=== PATIENT | male | born 1940 | race Two or more races ===

== ENCOUNTER 2023-11-14 19:01 | Inpatient (IN) | payer OTHER ==
[~2023-11-14] VITALS: Ht 198.1 cm; Wt 57.2 kg
[2023-11-14] MEDS ORDERED: MODA100T29 PO (19:33)
[2023-11-14] MEDS ORDERED: ASPI81TA31 PO (19:33)
[2023-11-14] MEDS ORDERED: TAMS-3 PO (19:33)
[2023-11-14] MEDS ORDERED: DOCU100T2 PO (19:33)
[2023-11-14] MEDS ORDERED: TRAZ-257 PO (19:33)
[2023-11-14] MEDS ORDERED: PANT40TA49 PO (19:33)
[2023-11-14] MEDS ORDERED: TRAM50TA2 PO (19:33)
[2023-11-14] MEDS ORDERED: ACET-3117 PO (19:33)
[2023-11-14] MEDS ORDERED: lispro SUBCUT (19:33)
[2023-11-14] MEDS ORDERED: EMPA25TA PO (20:14)
[2023-11-14 21:23] LABS: AMMONIA < 10 umol/L (11-32)
[2023-11-14 21:25] LABS: BASOPHILS % (AUTO) 0.3 % (0.0-2.0); DIFFERENTIAL COMMENT 0; HEMATOCRIT 33.2 % (36.7-47.1); HEMOGLOBIN 10.6 g/dL (12.5-16.3); LYMPHOCYTES # (AUTO) 0.8 K/uL (0.8-4.8); LYMPHOCYTES % (AUTO) 6.5 % (20.5-51.5); MEAN CORPUSCULAR HEMOGLOBIN 26.3 uug (23.8-33.4); MEAN CORPUSCULAR HGB CONC 32 g/dL (32.5-36.3); MEAN CORPUSCULAR VOLUME 82.6 fL (73.0-96.2); MONOCYTES # (AUTO) 0.6 K/uL (0.1-1.30); MONOCYTES % (AUTO) 4.5 % (0.0-11.0); NEUTROPHILS % (AUTO) 88.7 % (38.5-71.5); PLATELET COUNT (AUTO) 279 K/uL (152-348); RED BLOOD CELL COUNT(AUTO) 4.02 MIL/uL (4.06-5.63); RED CELL DISTRIBUTION WIDTH 16.9 % (12.1-16.2); WHITE BLOOD COUNT (AUTO) 12.4 K/uL (3.6-10.2)
[2023-11-14 21:43] LABS: CARBON DIOXIDE 28 mmol/L (21-32); CHLORIDE 109 mmol/L (98-107); CREATININE 0.8 mg/dL (0.6-1.3); GLUCOSE 99 mg/dL (74-106); POTASSIUM 3.4 mmol/L (3.5-5.1); SODIUM SERUM 147 mmol/L (136-145); UREA NITROGEN, BLOOD 17 mg/dL (7-18)
[2023-11-14 21:56] LABS: ALANINE AMINOTRANSFERASE 17 U/L (16-63); ALKALINE PHOSPHATASE 82 U/L (50-136); ASPARTATE AMINOTRANSFERASE 17 U/L (15-37); BILIRUBIN,TOTAL 0.2 mg/dL (0.2-1.0); NT-PRO BNP 8143 pg/mL (0-125); TOTAL PROTEIN, SERUM 7.1 g/dL (6.4-8.2)
[2023-11-15] VITALS (27 sets, daily range): BP systolic 72–148; BP diastolic 44–85; TEMP 97.7–98.7; O2SAT 96–100
[2023-11-15 00:15] LABS: *BILIRUBIN,URIN NEGATIVE (NEGATIVE); *BLOOD, URINE NEGATIVE (NEGATIVE); *CLARITY,URINE CLEAR (CLEAR); *COLOR,URINE YELLOW (YELLOW); *KETONES,URINE 1+ (NEGATIVE); *PROTEIN,URINE 1+ (NEGATIVE); *UROBILINOGEN,URINE 0.2 E.U./dl (NORMAL); LEUKOCYTE ESTERASE ,URINE NEGATIVE (NEGATIVE); NITRITE, URINE NEGATIVE (NEGATIVE); PH,URINE 5.5 (5.0-8.0)
[2023-11-15 00:17] LABS: UGLUCOSE 3+ (NEGATIVE)
[2023-11-15 01:09] LABS: BACTERIA,URINE FEW /HPF (NONE SEEN); RBC,URINE 0-3 /HPF (0-3); SQUAMOUS EPITHELIAL CELL,UR FEW /HPF (NONE SEEN); WBC,URINE NONE SEEN /HPF (0-3)
[2023-11-15] MEDS ORDERED: ONDANSETRON 4 MG/2 ML VIAL IV PRN (02:45)
[2023-11-15] MEDS ORDERED: REMEDY ESSENTIAL ZINC PASTE 113 GM TP PRN (02:45)
[2023-11-15] MEDS ORDERED: MAGNESIUM HYDROXIDE 30 ML LIQUID UDC PO PRN (02:45)
[2023-11-15] MEDS ORDERED: CEFEPIME HCL 1 G in IV DEXTROSE 5% 50 ML IV ONE (04:00)
[2023-11-15] MEDS ORDERED: AMIODARONE HCL 150 MG/3 ML VIAL IV ONE ×2 (04:18)
[2023-11-15] MEDS ORDERED: IV NS 1000 ML 1,000 ML IV ONE (04:30)
[2023-11-15] MEDS ORDERED: AMIODARONE HCL IV 150 MG in IV DEXTROSE 5% 100 ML IV ONE (05:00)
[2023-11-15] MEDS: AMIODARONE HCL IV 450 MG in IV DEXTROSE 5% 250 ML IV PRN (06:12)
[2023-11-15 07:43] LABS: BASOPHILS % (AUTO) 0.2 % (0.0-2.0); HEMATOCRIT 30.4 % (36.7-47.1); HEMOGLOBIN 9.8 g/dL (12.5-16.3); LYMPHOCYTES # (AUTO) 1.3 K/uL (0.8-4.8); LYMPHOCYTES % (AUTO) 14.3 % (20.5-51.5); MEAN CORPUSCULAR HEMOGLOBIN 26.7 uug (23.8-33.4); MEAN CORPUSCULAR HGB CONC 32 g/dL (32.5-36.3); MEAN CORPUSCULAR VOLUME 82.6 fL (73.0-96.2); MONOCYTES # (AUTO) 0.6 K/uL (0.1-1.30); MONOCYTES % (AUTO) 6.6 % (0.0-11.0); NEUTROPHILS # (AUTO) 7.4 K/uL (1.8-8.9); NEUTROPHILS % (AUTO) 78.9 % (38.5-71.5); PLATELET COUNT (AUTO) 244 K/uL (152-348); RED BLOOD CELL COUNT(AUTO) 3.68 MIL/uL (4.06-5.63); RED CELL DISTRIBUTION WIDTH 17.2 % (12.1-16.2); WHITE BLOOD COUNT (AUTO) 9.4 K/uL (3.6-10.2)
[2023-11-15] MEDS: BLOOD SUGAR DIAGNOSTIC 1 EACH STRIP VI SCH ×4 (07:49→21:11)
[2023-11-15 08:19] LABS: DIFFERENTIAL COMMENT 1
[2023-11-15 08:20] LABS: THYROID STIMULATING HORMONE 0.721 mIU/mL (0.358-3.740)
[2023-11-15 08:37] LABS: CALCIUM 8.4 mg/dL (8.5-10.1); CREATININE 0.7 mg/dL (0.6-1.3)
[2023-11-15 09:18] LABS: MAGNESIUM 1.9 mg/dL (1.8-2.4); PHOSPHOROUS 4.2 mg/dL (2.5-4.9)
[2023-11-15] MEDS: INSULIN REGULAR, HUMAN 300 UNIT/3 ML VIAL SQ PRN ×3 (09:24→17:37)
[2023-11-15] MEDS: ENOXAPARIN SODIUM 40 MG/0.4 ML DISP.SYRIN SQ SCH (09:24)
[2023-11-15] MEDS: ASPIRIN 81 MG TAB.CHEW PO SCH (09:25)
[2023-11-15] MEDS: MODAFINIL 100 MG TABLET PO SCH (09:25)
[2023-11-15] MEDS: EMPAGLIFLOZIN 25 MG TABLET PO SCH (09:25)
[2023-11-15] MEDS: PANTOPRAZOLE SODIUM 40 MG VIAL IV SCH (09:25)
[2023-11-15] MEDS: DOCUSATE SODIUM 100 MG CAPSULE PO SCH ×2 (09:25→17:00)
[2023-11-15] MEDS: CEFEPIME HCL 1 G in IV DEXTROSE 5% 50 ML IV SCH ×2 (09:26→17:38)
[2023-11-15] MEDS ORDERED: POTASSIUM CHLORIDE 20 MEQ in IV NS 1000 ML 1,000 ML IV PRN (09:30)
[2023-11-15] MEDS ORDERED: POTASSIUM CHLORIDE 20 MEQ TAB.PRT.SR PO ONE (09:45)
[2023-11-15 09:53] LABS: IRON, SERUM 8 ug/dL (50-175)
[2023-11-15] MEDS ORDERED: POTASSIUM CHLORIDE 20 MEQ POWDER PACKET PO ONE (11:30)
[2023-11-15] MEDS: PHENYLEPHRINE IV 50 MG in IV NORMAL SALINE 245 ML IV PRN (17:35)
[2023-11-15] MEDS: POTASSIUM CHLORIDE 20 MEQ in IV D5/ 0.9% NACL 1,000 ML IV PRN (18:35)
[2023-11-15] MEDS ORDERED: TAMSULOSIN HCL 0.4 MG CAP.SR.24H PO SCH (21:00)
[2023-11-16] VITALS (65 sets, daily range): BP systolic 61–159; BP diastolic 35–106; TEMP 97–98; O2SAT 89–100
[2023-11-16] MEDS: CEFEPIME HCL 1 G in IV DEXTROSE 5% 50 ML IV SCH ×3 (00:26→18:39)
[2023-11-16 06:04] LABS: BASOPHILS % (AUTO) 0.4 % (0.0-2.0); DIFFERENTIAL COMMENT 0; EOSINOPHILS % (AUTO) 0.1 % (0.0-7.0); HEMATOCRIT 33.9 % (36.7-47.1); HEMOGLOBIN 10.7 g/dL (12.5-16.3); LYMPHOCYTES # (AUTO) 1.5 K/uL (0.8-4.8); LYMPHOCYTES % (AUTO) 13.5 % (20.5-51.5); MEAN CORPUSCULAR HEMOGLOBIN 25.9 uug (23.8-33.4); MEAN CORPUSCULAR HGB CONC 32 g/dL (32.5-36.3); MEAN CORPUSCULAR VOLUME 81.9 fL (73.0-96.2); MONOCYTES # (AUTO) 0.8 K/uL (0.1-1.30); NEUTROPHILS # (AUTO) 8.9 K/uL (1.8-8.9); PLATELET COUNT (AUTO) 299 K/uL (152-348); RED BLOOD CELL COUNT(AUTO) 4.13 MIL/uL (4.06-5.63); RED CELL DISTRIBUTION WIDTH 16.8 % (12.1-16.2); WHITE BLOOD COUNT (AUTO) 11.2 K/uL (3.6-10.2)
[2023-11-16 06:16] LABS: THYROID STIMULATING HORMONE 0.752 mIU/mL (0.358-3.740)
[2023-11-16 06:58] LABS: CALCIUM 8.5 mg/dL (8.5-10.1); CARBON DIOXIDE 18 mmol/L (21-32); CHLORIDE 105 mmol/L (98-107); CHOLESTEROL 164 mg/dL (<200); CREATININE 0.7 mg/dL (0.6-1.3); GLUCOSE 128 mg/dL (74-106); HDL CHOLESTEROL 58 mg/dL (40-60); PHOSPHOROUS 3.4 mg/dL (2.5-4.9); POTASSIUM 3.5 mmol/L (3.5-5.1); SODIUM SERUM 140 mmol/L (136-145); TRIGLYCERIDES 64 MG/DL (30-150); UREA NITROGEN, BLOOD 16 mg/dL (7-18)
[2023-11-16] MEDS: BLOOD SUGAR DIAGNOSTIC 1 EACH STRIP VI SCH ×4 (07:30→21:18)
[2023-11-16] MEDS: ASPIRIN 81 MG TAB.CHEW PO SCH (08:53)
[2023-11-16] MEDS: DOCUSATE SODIUM 100 MG CAPSULE PO SCH ×2 (08:53→17:00)
[2023-11-16] MEDS: MODAFINIL 100 MG TABLET PO SCH (08:53)
[2023-11-16] MEDS: PANTOPRAZOLE SODIUM 40 MG VIAL IV SCH (08:53)
[2023-11-16] MEDS: ENOXAPARIN SODIUM 40 MG/0.4 ML DISP.SYRIN SQ SCH (08:55)
[2023-11-16] MEDS: ACETAMINOPHEN 325 MG TABLET PO PRN (08:56)
[2023-11-16] MEDS: PHENYLEPHRINE IV 50 MG in IV NORMAL SALINE 245 ML IV PRN (09:34)
[2023-11-16] MEDS: EMPAGLIFLOZIN 25 MG TABLET PO SCH (10:03)
[2023-11-16] MEDS: INSULIN REGULAR, HUMAN 300 UNIT/3 ML VIAL SQ PRN ×2 (10:25→13:00)
[2023-11-16] MEDS ORDERED: INSU100V7 SQ (10:29)
[2023-11-16] MEDS: POTASSIUM CHLORIDE 20 MEQ in IV D5/ 0.9% NACL 1,000 ML IV PRN (13:51)
[2023-11-16] MEDS ORDERED: LORAZEPAM 2 MG/1 ML VIAL IV PRN (14:15)
[2023-11-16] MEDS: TAMSULOSIN HCL 0.4 MG CAP.SR.24H PO SCH (21:22)
[2023-11-16] MEDS: INSULIN GLARGINE,HUM 300 UNITS/3 ML CARTRIDGE SQ SCH (21:23)
[2023-11-17] VITALS (62 sets, daily range): BP systolic 75–148; BP diastolic 43–105; TEMP 97.4–97.8; O2SAT 94–100
[2023-11-17] MEDS: CEFEPIME HCL 1 G in IV DEXTROSE 5% 50 ML IV SCH ×3 (01:50→18:27)
[2023-11-17] MEDS: PHENYLEPHRINE IV 50 MG in IV NORMAL SALINE 245 ML IV PRN (02:02)
[2023-11-17 05:31] LABS: BASOPHILS # (AUTO) 0.1 K/UL (0.0-0.2); BASOPHILS % (AUTO) 0.6 % (0.0-2.0); EOSINOPHILS % (AUTO) 0.5 % (0.0-7.0); HEMATOCRIT 39.8 % (36.7-47.1); HEMOGLOBIN 12.6 g/dL (12.5-16.3); LYMPHOCYTES # (AUTO) 1.6 K/uL (0.8-4.8); LYMPHOCYTES % (AUTO) 17.3 % (20.5-51.5); MEAN CORPUSCULAR HGB CONC 32 g/dL (32.5-36.3); MONOCYTES # (AUTO) 0.6 K/uL (0.1-1.30); MONOCYTES % (AUTO) 6.4 % (0.0-11.0); NEUTROPHILS % (AUTO) 75.2 % (38.5-71.5); PLATELET COUNT (AUTO) 301 K/uL (152-348); RED BLOOD CELL COUNT(AUTO) 4.86 MIL/uL (4.06-5.63); RED CELL DISTRIBUTION WIDTH 16.9 % (12.1-16.2); WHITE BLOOD COUNT (AUTO) 9.3 K/uL (3.6-10.2)
[2023-11-17 05:35] LABS: DIFFERENTIAL COMMENT 1
[2023-11-17 05:54] LABS: ALANINE AMINOTRANSFERASE 31 U/L (16-63); ALBUMIN 2.8 g/dL (3.4-5.0); ALKALINE PHOSPHATASE 124 U/L (50-136); ASPARTATE AMINOTRANSFERASE 21 U/L (15-37); BILIRUBIN,TOTAL 0.4 mg/dL (0.2-1.0); CALCIUM 8.8 mg/dL (8.5-10.1); CARBON DIOXIDE 25 mmol/L (21-32); CHLORIDE 106 mmol/L (98-107); CREATININE 0.7 mg/dL (0.6-1.3); GLUCOSE 110 mg/dL (74-106); MAGNESIUM 1.9 mg/dL (1.8-2.4); PHOSPHOROUS 3.2 mg/dL (2.5-4.9); POTASSIUM 3.3 mmol/L (3.5-5.1); SODIUM SERUM 142 mmol/L (136-145); TOTAL PROTEIN, SERUM 7.2 g/dL (6.4-8.2); UREA NITROGEN, BLOOD 13 mg/dL (7-18)
[2023-11-17] MEDS: BLOOD SUGAR DIAGNOSTIC 1 EACH STRIP VI SCH ×4 (07:42→21:00)
[2023-11-17] MEDS: ENOXAPARIN SODIUM 40 MG/0.4 ML DISP.SYRIN SQ SCH (08:53)
[2023-11-17] MEDS: PANTOPRAZOLE SODIUM 40 MG TABLET.DR PO SCH (14:03)
[2023-11-17] MEDS: ASPIRIN 81 MG TAB.CHEW PO SCH (14:05)
[2023-11-17] MEDS: DOCUSATE SODIUM 100 MG CAPSULE PO SCH ×2 (14:06→18:27)
[2023-11-17] MEDS: EMPAGLIFLOZIN 25 MG TABLET PO SCH (14:07)
[2023-11-17] MEDS: DOXYCYCLINE HYCLATE 100 MG TABLET PO SCH ×2 (14:07→20:42)
[2023-11-17] MEDS ORDERED: POTASSIUM CHLORIDE 20 MEQ TAB.PRT.SR PO ONE (14:45)
[2023-11-17] MEDS: AMIODARONE HCL IV 450 MG in IV DEXTROSE 5% 250 ML IV PRN ×2 (17:20→17:28)
[2023-11-17] MEDS: TAMSULOSIN HCL 0.4 MG CAP.SR.24H PO SCH (20:42)
[2023-11-17] MEDS: INSULIN GLARGINE,HUM 300 UNITS/3 ML CARTRIDGE SQ SCH (21:06)
[2023-11-17] MEDS ORDERED: ENOXAPARIN SODIUM 60 MG/0.6 ML DISP.SYRIN SQ ONE (21:15)
[2023-11-18] VITALS (42 sets, daily range): BP systolic 104–153; BP diastolic 44–117; TEMP 97.1–97.7; O2SAT 93–99
[2023-11-18] MEDS: ACETAMINOPHEN 325 MG TABLET PO PRN ×3 (00:36→16:46)
[2023-11-18] MEDS: CEFEPIME HCL 1 G in IV DEXTROSE 5% 50 ML IV SCH ×3 (00:36→16:59)
[2023-11-18] MEDS: AMIODARONE HCL IV 450 MG in IV DEXTROSE 5% 250 ML IV PRN (04:03)
[2023-11-18] MEDS: PANTOPRAZOLE SODIUM 40 MG TABLET.DR PO SCH (06:46)
[2023-11-18] MEDS: BLOOD SUGAR DIAGNOSTIC 1 EACH STRIP VI SCH ×4 (06:46→20:51)
[2023-11-18] MEDS: ASPIRIN 81 MG TAB.CHEW PO SCH (08:45)
[2023-11-18] MEDS: DOCUSATE SODIUM 100 MG CAPSULE PO SCH ×2 (08:45→17:00)
[2023-11-18] MEDS: DOXYCYCLINE HYCLATE 100 MG TABLET PO SCH ×2 (08:46→20:37)
[2023-11-18] MEDS: EMPAGLIFLOZIN 25 MG TABLET PO SCH (08:46)
[2023-11-18] MEDS: OLANZAPINE 10 MG VIAL IM PRN ×2 (12:41→22:12)
[2023-11-18] MEDS: ENOXAPARIN SODIUM 60 MG/0.6 ML DISP.SYRIN SQ SCH ×2 (15:02→20:38)
[2023-11-18] MEDS: PHENYLEPHRINE IV 50 MG in IV NORMAL SALINE 245 ML IV PRN (16:50)
[2023-11-18] MEDS: HALOPERIDOL LACTATE 5 MG/1 ML VIAL IM PRN (20:02)
[2023-11-18] MEDS: INSULIN GLARGINE,HUM 300 UNITS/3 ML CARTRIDGE SQ SCH (20:06)
[2023-11-18] MEDS: TAMSULOSIN HCL 0.4 MG CAP.SR.24H PO SCH (20:37)
[2023-11-19] VITALS (23 sets, daily range): BP systolic 104–167; BP diastolic 52–134; TEMP 97.3–98.7; O2SAT 96–100
[2023-11-19] MEDS: CEFEPIME HCL 1 G in IV DEXTROSE 5% 50 ML IV SCH ×3 (00:18→18:18)
[2023-11-19] MEDS: PANTOPRAZOLE SODIUM 40 MG TABLET.DR PO SCH (05:51)
[2023-11-19] MEDS: BLOOD SUGAR DIAGNOSTIC 1 EACH STRIP VI SCH ×4 (08:49→21:14)
[2023-11-19] MEDS: ASPIRIN 81 MG TAB.CHEW PO SCH (09:04)
[2023-11-19] MEDS: DOCUSATE SODIUM 100 MG CAPSULE PO SCH ×2 (09:05→18:26)
[2023-11-19] MEDS: EMPAGLIFLOZIN 25 MG TABLET PO SCH (09:05)
[2023-11-19] MEDS: DOXYCYCLINE HYCLATE 100 MG TABLET PO SCH ×2 (09:07→21:04)
[2023-11-19] MEDS: LOSARTAN POTASSIUM 25 MG TABLET PO SCH (09:31)
[2023-11-19] MEDS: HALOPERIDOL LACTATE 5 MG/1 ML VIAL IM PRN ×2 (09:31→21:04)
[2023-11-19] MEDS: ENOXAPARIN SODIUM 60 MG/0.6 ML DISP.SYRIN SQ SCH ×2 (10:41→21:06)
[2023-11-19] MEDS: OLANZAPINE 10 MG VIAL IM PRN (10:45)
[2023-11-19] MEDS: ACETAMINOPHEN 325 MG TABLET PO PRN (12:25)
[2023-11-19] MEDS: INSULIN REGULAR, HUMAN 300 UNIT/3 ML VIAL SQ PRN (18:20)
[2023-11-19] MEDS ORDERED: AMIODARONE HCL IV 150 MG in IV DEXTROSE 5% 100 ML IV ONE (18:45)
[2023-11-19] MEDS: AMIODARONE HCL IV 450 MG in IV DEXTROSE 5% 250 ML IV PRN (19:38)
[2023-11-19] MEDS: INSULIN GLARGINE,HUM 300 UNITS/3 ML CARTRIDGE SQ SCH (21:00)
[2023-11-19] MEDS: TAMSULOSIN HCL 0.4 MG CAP.SR.24H PO SCH (21:05)
[2023-11-20] VITALS (26 sets, daily range): BP systolic 97–140; BP diastolic 47–92; TEMP 97.6–98.4; O2SAT 95–100
[2023-11-20] MEDS: CEFEPIME HCL 1 G in IV DEXTROSE 5% 50 ML IV SCH ×3 (00:49→17:00)
[2023-11-20] MEDS: AMIODARONE HCL IV 450 MG in IV DEXTROSE 5% 250 ML IV PRN (01:42)
[2023-11-20] MEDS: PANTOPRAZOLE SODIUM 40 MG TABLET.DR PO SCH (07:42)
[2023-11-20] MEDS: BLOOD SUGAR DIAGNOSTIC 1 EACH STRIP VI SCH ×4 (07:44→21:00)
[2023-11-20] MEDS: INSULIN REGULAR, HUMAN 300 UNIT/3 ML VIAL SQ PRN ×2 (07:50→17:02)
[2023-11-20] MEDS: ASPIRIN 81 MG TAB.CHEW PO SCH (09:03)
[2023-11-20] MEDS: DOCUSATE SODIUM 100 MG CAPSULE PO SCH ×2 (09:03→17:00)
[2023-11-20] MEDS: LOSARTAN POTASSIUM 25 MG TABLET PO SCH (09:04)
[2023-11-20] MEDS: DOXYCYCLINE HYCLATE 100 MG TABLET PO SCH ×2 (09:04→20:58)
[2023-11-20] MEDS: EMPAGLIFLOZIN 25 MG TABLET PO SCH (09:04)
[2023-11-20] MEDS: ENOXAPARIN SODIUM 60 MG/0.6 ML DISP.SYRIN SQ SCH ×2 (09:05→21:05)
[2023-11-20] MEDS ORDERED: OLANZAPINE ZYDIS 5 MG TAB.RAPDIS PO SCH (09:30)
[2023-11-20] MEDS: OLANZAPINE 10 MG VIAL IM PRN (09:49)
[2023-11-20] MEDS: METOPROLOL TARTRATE 25 MG TABLET PO SCH ×2 (12:22→20:56)
[2023-11-20] MEDS ORDERED: NOREPINEPHRINE BITARTRATE 32 MG in IV NORMAL SALINE 218 ML IV PRN (12:30)
[2023-11-20] MEDS: LORAZEPAM 0.5 MG TABLET PO PRN (12:34)
[2023-11-20] MEDS: AMIODARONE HCL 200 MG TABLET PO SCH ×2 (15:15→20:56)
[2023-11-20] MEDS: OLANZAPINE ZYDIS 5 MG TAB.RAPDIS PO SCH (17:00)
[2023-11-20] MEDS: MIRTAZAPINE 15 MG TABLET PO SCH (20:56)
[2023-11-20] MEDS: TAMSULOSIN HCL 0.4 MG CAP.SR.24H PO SCH (20:56)
[2023-11-20] MEDS: INSULIN GLARGINE,HUM 300 UNITS/3 ML CARTRIDGE SQ SCH (21:00)
[2023-11-20] MEDS ORDERED: MIRTAZAPINE 15 MG TABLET PO SCH (21:00)
[2023-11-20] MEDS ORDERED: GUAIFENESIN LA 600 MG TABLET.SA PO ONE (23:43)
[2023-11-21] VITALS (21 sets, daily range): BP systolic 92–147; BP diastolic 45–93; TEMP 96.9–98; O2SAT 96–99
[2023-11-21] MEDS: CEFEPIME HCL 1 G in IV DEXTROSE 5% 50 ML IV SCH ×3 (01:06→16:51)
[2023-11-21] MEDS: LORAZEPAM 0.5 MG TABLET PO PRN ×2 (05:24→15:22)
[2023-11-21] MEDS: PANTOPRAZOLE SODIUM 40 MG TABLET.DR PO SCH (06:02)
[2023-11-21] MEDS: BLOOD SUGAR DIAGNOSTIC 1 EACH STRIP VI SCH ×4 (07:57→21:39)
[2023-11-21] MEDS: AMIODARONE HCL 200 MG TABLET PO SCH ×2 (08:57→21:01)
[2023-11-21] MEDS: ASPIRIN 81 MG TAB.CHEW PO SCH (08:58)
[2023-11-21] MEDS: DOCUSATE SODIUM 100 MG CAPSULE PO SCH ×2 (08:58→16:50)
[2023-11-21] MEDS: METOPROLOL TARTRATE 25 MG TABLET PO SCH ×2 (08:59→20:59)
[2023-11-21] MEDS: ENOXAPARIN SODIUM 60 MG/0.6 ML DISP.SYRIN SQ SCH ×2 (09:00→21:34)
[2023-11-21] MEDS: LOSARTAN POTASSIUM 25 MG TABLET PO SCH (09:01)
[2023-11-21] MEDS: EMPAGLIFLOZIN 25 MG TABLET PO SCH (09:01)
[2023-11-21] MEDS: OLANZAPINE ZYDIS 5 MG TAB.RAPDIS PO SCH ×2 (09:02→16:50)
[2023-11-21] MEDS: DOXYCYCLINE HYCLATE 100 MG TABLET PO SCH ×2 (09:02→21:04)
[2023-11-21] MEDS: INSULIN REGULAR, HUMAN 300 UNIT/3 ML VIAL SQ PRN (11:42)
[2023-11-21 12:11] LABS: ALANINE AMINOTRANSFERASE 20 U/L (16-63); ALBUMIN 2.3 g/dL (3.4-5.0); ALKALINE PHOSPHATASE 91 U/L (50-136); ASPARTATE AMINOTRANSFERASE 29 U/L (15-37); BILIRUBIN,TOTAL 0.3 mg/dL (0.2-1.0); CALCIUM 8.5 mg/dL (8.5-10.1); CARBON DIOXIDE 26 mmol/L (21-32); CHLORIDE 107 mmol/L (98-107); CREATININE 0.7 mg/dL (0.6-1.3); GLUCOSE 125 mg/dL (74-106); MAGNESIUM 1.9 mg/dL (1.8-2.4); PHOSPHOROUS 2.7 mg/dL (2.5-4.9); POTASSIUM 3.3 mmol/L (3.5-5.1); SODIUM SERUM 141 mmol/L (136-145); UREA NITROGEN, BLOOD 12 mg/dL (7-18)
[2023-11-21 12:30] LABS: BASOPHILS # (AUTO) 0.2 K/UL (0.0-0.2); BASOPHILS % (AUTO) 1.6 % (0.0-2.0); DIFFERENTIAL COMMENT 0; EOSINOPHILS # (AUTO) 0.1 K/uL (0.0-0.7); EOSINOPHILS % (AUTO) 0.6 % (0.0-7.0); HEMATOCRIT 33.8 % (36.7-47.1); HEMOGLOBIN 10.7 g/dL (12.5-16.3); LYMPHOCYTES % (AUTO) 9.8 % (20.5-51.5); MEAN CORPUSCULAR HEMOGLOBIN 25.8 uug (23.8-33.4); MEAN CORPUSCULAR HGB CONC 32 g/dL (32.5-36.3); MEAN CORPUSCULAR VOLUME 81.7 fL (73.0-96.2); MONOCYTES # (AUTO) 0.5 K/uL (0.1-1.30); NEUTROPHILS # (AUTO) 8.5 K/uL (1.8-8.9); PLATELET COUNT (AUTO) 338 K/uL (152-348); RED BLOOD CELL COUNT(AUTO) 4.14 MIL/uL (4.06-5.63); RED CELL DISTRIBUTION WIDTH 17.4 % (12.1-16.2); WHITE BLOOD COUNT (AUTO) 10.2 K/uL (3.6-10.2)
[2023-11-21] MEDS: POTASSIUM CHLORIDE 50 ML IV SCH ×4 (15:13→18:26)
[2023-11-21] MEDS: OLANZAPINE 10 MG VIAL IM PRN (19:22)
[2023-11-21] MEDS: TAMSULOSIN HCL 0.4 MG CAP.SR.24H PO SCH (20:57)
[2023-11-21] MEDS: MIRTAZAPINE 15 MG TABLET PO SCH (20:58)
[2023-11-21] MEDS: GUAIFENESIN LA 600 MG TABLET.SA PO SCH (20:58)
[2023-11-21] MEDS: INSULIN GLARGINE,HUM 300 UNITS/3 ML CARTRIDGE SQ SCH (21:00)
[2023-11-22] VITALS (8 sets, daily range): BP systolic 108–125; BP diastolic 54–96; TEMP 97.2–98.3; O2SAT 96–99
[2023-11-22] MEDS: LORAZEPAM 0.5 MG TABLET PO PRN (00:23)
[2023-11-22] MEDS: QUETIAPINE FUMARATE 25 MG TABLET PO SCH ×2 (00:23→20:54)
[2023-11-22 06:05] LABS: BASOPHILS % (AUTO) 0.3 % (0.0-2.0); EOSINOPHILS % (AUTO) 0.2 % (0.0-7.0); HEMATOCRIT 35.4 % (36.7-47.1); HEMOGLOBIN 11.3 g/dL (12.5-16.3); LYMPHOCYTES # (AUTO) 0.9 K/uL (0.8-4.8); LYMPHOCYTES % (AUTO) 8.1 % (20.5-51.5); MEAN CORPUSCULAR HEMOGLOBIN 25.9 uug (23.8-33.4); MEAN CORPUSCULAR HGB CONC 32 g/dL (32.5-36.3); MEAN CORPUSCULAR VOLUME 80.9 fL (73.0-96.2); MONOCYTES # (AUTO) 0.6 K/uL (0.1-1.30); MONOCYTES % (AUTO) 5.6 % (0.0-11.0); NEUTROPHILS # (AUTO) 9.3 K/uL (1.8-8.9); NEUTROPHILS % (AUTO) 85.8 % (38.5-71.5); PLATELET COUNT (AUTO) 416 K/uL (152-348); RED BLOOD CELL COUNT(AUTO) 4.37 MIL/uL (4.06-5.63); RED CELL DISTRIBUTION WIDTH 17.2 % (12.1-16.2); WHITE BLOOD COUNT (AUTO) 10.9 K/uL (3.6-10.2)
[2023-11-22] MEDS: BLOOD SUGAR DIAGNOSTIC 1 EACH STRIP VI SCH ×4 (06:38→20:55)
[2023-11-22] MEDS: PANTOPRAZOLE SODIUM 40 MG TABLET.DR PO SCH (06:38)
[2023-11-22 06:50] LABS: CALCIUM 8.8 mg/dL (8.5-10.1); CARBON DIOXIDE 27 mmol/L (21-32); CHLORIDE 109 mmol/L (98-107); CREATININE 0.8 mg/dL (0.6-1.3); GLUCOSE 130 mg/dL (74-106); POTASSIUM 3.7 mmol/L (3.5-5.1); SODIUM SERUM 144 mmol/L (136-145); UREA NITROGEN, BLOOD 12 mg/dL (7-18)
[2023-11-22 06:53] LABS: DIFFERENTIAL COMMENT 1
[2023-11-22] MEDS: ASPIRIN 81 MG TAB.CHEW PO SCH (09:24)
[2023-11-22] MEDS: GUAIFENESIN LA 600 MG TABLET.SA PO SCH ×2 (09:24→20:54)
[2023-11-22] MEDS: AMIODARONE HCL 200 MG TABLET PO SCH ×2 (09:25→20:53)
[2023-11-22] MEDS: DOCUSATE SODIUM 100 MG CAPSULE PO SCH ×2 (09:26→17:16)
[2023-11-22] MEDS: METOPROLOL TARTRATE 25 MG TABLET PO SCH ×2 (09:27→20:53)
[2023-11-22] MEDS: OLANZAPINE ZYDIS 5 MG TAB.RAPDIS PO SCH ×2 (09:27→17:16)
[2023-11-22] MEDS: LOSARTAN POTASSIUM 25 MG TABLET PO SCH (09:28)
[2023-11-22] MEDS: ENOXAPARIN SODIUM 60 MG/0.6 ML DISP.SYRIN SQ SCH ×2 (09:31→20:55)
[2023-11-22] MEDS: EMPAGLIFLOZIN 25 MG TABLET PO SCH (10:44)
[2023-11-22] MEDS: INSULIN REGULAR, HUMAN 300 UNIT/3 ML VIAL SQ PRN (12:26)
[2023-11-22] MEDS: TAMSULOSIN HCL 0.4 MG CAP.SR.24H PO SCH (20:53)
[2023-11-22] MEDS: MIRTAZAPINE 15 MG TABLET PO SCH (20:54)
[2023-11-22] MEDS: INSULIN GLARGINE,HUM 300 UNITS/3 ML CARTRIDGE SQ SCH (21:00)
[2023-11-23] MEDS: ACETAMINOPHEN 325 MG TABLET PO PRN (05:35)
[2023-11-23] MEDS: BLOOD SUGAR DIAGNOSTIC 1 EACH STRIP VI SCH ×4 (06:15→21:38)
[2023-11-23] MEDS: DEXTROSE 50% 50 ML DISP.SYRIN IV PRN ×2 (06:15→11:40)
[2023-11-23] MEDS: PANTOPRAZOLE SODIUM 40 MG TABLET.DR PO SCH (06:23)
[2023-11-23 08:00] VITALS: BP 92/49; TEMP 98; O2SAT 97
[2023-11-23] MEDS ORDERED: IV NORMAL SALINE 500 ML IV ONE (08:45)
[2023-11-23] MEDS: LOSARTAN POTASSIUM 25 MG TABLET PO SCH (09:00)
[2023-11-23] MEDS: EMPAGLIFLOZIN 25 MG TABLET PO SCH (09:00)
[2023-11-23] MEDS: METOPROLOL TARTRATE 25 MG TABLET PO SCH ×2 (09:00→21:00)
[2023-11-23] MEDS: DOCUSATE SODIUM 100 MG CAPSULE PO SCH ×2 (09:14→16:50)
[2023-11-23] MEDS: GUAIFENESIN LA 600 MG TABLET.SA PO SCH ×2 (09:14→21:37)
[2023-11-23] MEDS: OLANZAPINE ZYDIS 5 MG TAB.RAPDIS PO SCH ×2 (09:14→16:50)
[2023-11-23] MEDS: ASPIRIN 81 MG TAB.CHEW PO SCH (09:14)
[2023-11-23] MEDS: AMIODARONE HCL 200 MG TABLET PO SCH ×2 (09:16→21:36)
[2023-11-23] MEDS: ENOXAPARIN SODIUM 60 MG/0.6 ML DISP.SYRIN SQ SCH ×2 (09:35→21:39)
[2023-11-23 11:35] LABS: BASOPHILS # (AUTO) 0.1 K/UL (0.0-0.2); HEMATOCRIT 32.4 % (36.7-47.1); HEMOGLOBIN 10.3 g/dL (12.5-16.3); LYMPHOCYTES # (AUTO) 1.2 K/uL (0.8-4.8); LYMPHOCYTES % (AUTO) 8.7 % (20.5-51.5); MEAN CORPUSCULAR HEMOGLOBIN 25.7 uug (23.8-33.4); MEAN CORPUSCULAR HGB CONC 32 g/dL (32.5-36.3); MEAN CORPUSCULAR VOLUME 81.3 fL (73.0-96.2); MONOCYTES # (AUTO) 0.9 K/uL (0.1-1.30); MONOCYTES % (AUTO) 6.7 % (0.0-11.0); NEUTROPHILS # (AUTO) 11.1 K/uL (1.8-8.9); NEUTROPHILS % (AUTO) 83.6 % (38.5-71.5); PLATELET COUNT (AUTO) 365 K/uL (152-348); RED BLOOD CELL COUNT(AUTO) 3.98 MIL/uL (4.06-5.63); RED CELL DISTRIBUTION WIDTH 17.3 % (12.1-16.2); WHITE BLOOD COUNT (AUTO) 13.3 K/uL (3.6-10.2)
[2023-11-23 11:41] LABS: DIFFERENTIAL COMMENT 1
[2023-11-23 11:45] LABS: CALCIUM 8.5 mg/dL (8.5-10.1); CARBON DIOXIDE 26 mmol/L (21-32); CHLORIDE 112 mmol/L (98-107); CREATININE 0.7 mg/dL (0.6-1.3); GLUCOSE 56 mg/dL (74-106); POTASSIUM 3.3 mmol/L (3.5-5.1); SODIUM SERUM 144 mmol/L (136-145); UREA NITROGEN, BLOOD 14 mg/dL (7-18)
[2023-11-23 12:00] VITALS: BP 110/43; TEMP 97.8; O2SAT 97
[2023-11-23 17:00] VITALS: BP 103/79; TEMP 97.2; O2SAT 97
[2023-11-23 20:00] VITALS: BP 125/80; TEMP 98; O2SAT 97
[2023-11-23 20:30] VITALS: O2SAT 99
[2023-11-23] MEDS: TAMSULOSIN HCL 0.4 MG CAP.SR.24H PO SCH (21:36)
[2023-11-23] MEDS: MIRTAZAPINE 15 MG TABLET PO SCH (21:37)
[2023-11-23] MEDS: QUETIAPINE FUMARATE 25 MG TABLET PO SCH (21:37)
[2023-11-23 23:30] VITALS: BP 105/66; TEMP 98; O2SAT 97
[2023-11-24 05:47] VITALS: BP 108/68; TEMP 98; O2SAT 94
[2023-11-24] MEDS: BLOOD SUGAR DIAGNOSTIC 1 EACH STRIP VI SCH ×4 (06:19→20:51)
[2023-11-24] MEDS: PANTOPRAZOLE SODIUM 40 MG TABLET.DR PO SCH (06:20)
[2023-11-24] MEDS: INSULIN REGULAR, HUMAN 300 UNIT/3 ML VIAL SQ PRN ×4 (08:02→20:59)
[2023-11-24] MEDS: METOPROLOL TARTRATE 25 MG TABLET PO SCH ×2 (09:00→20:53)
[2023-11-24] MEDS: LOSARTAN POTASSIUM 25 MG TABLET PO SCH (09:00)
[2023-11-24] MEDS: ENOXAPARIN SODIUM 60 MG/0.6 ML DISP.SYRIN SQ SCH ×2 (09:02→20:55)
[2023-11-24] MEDS: DOCUSATE SODIUM 100 MG CAPSULE PO SCH ×2 (09:11→16:39)
[2023-11-24] MEDS: AMIODARONE HCL 200 MG TABLET PO SCH ×2 (09:11→20:53)
[2023-11-24] MEDS: ASPIRIN 81 MG TAB.CHEW PO SCH (09:12)
[2023-11-24] MEDS: GUAIFENESIN LA 600 MG TABLET.SA PO SCH ×2 (09:12→20:52)
[2023-11-24] MEDS: OLANZAPINE ZYDIS 5 MG TAB.RAPDIS PO SCH ×2 (09:12→16:39)
[2023-11-24] MEDS: EMPAGLIFLOZIN 25 MG TABLET PO SCH (09:19)
[2023-11-24 12:00] VITALS: BP 114/70; TEMP 97.9
[2023-11-24 16:00] VITALS: BP 105/67; TEMP 97.8
[2023-11-24] MEDS: PROTEIN SUPPLEMENT (PROSTAT) 30 ML LIQUID PO SCH (16:14)
[2023-11-24 20:00] VITALS: BP 104/56; TEMP 98.3; O2SAT 93
[2023-11-24] MEDS: TAMSULOSIN HCL 0.4 MG CAP.SR.24H PO SCH (20:53)
[2023-11-24] MEDS: QUETIAPINE FUMARATE 25 MG TABLET PO SCH (20:53)
[2023-11-24] MEDS: MIRTAZAPINE 15 MG TABLET PO SCH (20:53)
[2023-11-25 05:41] VITALS: BP 98/58; TEMP 97.9; O2SAT 96
[2023-11-25] MEDS: PANTOPRAZOLE SODIUM 40 MG TABLET.DR PO SCH (06:18)
[2023-11-25] MEDS: BLOOD SUGAR DIAGNOSTIC 1 EACH STRIP VI SCH ×4 (06:45→21:21)
[2023-11-25 08:00] VITALS: BP 100/54; TEMP 98.4; O2SAT 98
[2023-11-25] MEDS: LOSARTAN POTASSIUM 25 MG TABLET PO SCH (09:00)
[2023-11-25] MEDS: METOPROLOL TARTRATE 25 MG TABLET PO SCH ×2 (09:00→21:12)
[2023-11-25] MEDS: OLANZAPINE ZYDIS 5 MG TAB.RAPDIS PO SCH ×2 (11:43→17:28)
[2023-11-25] MEDS: ASPIRIN 81 MG TAB.CHEW PO SCH (11:43)
[2023-11-25] MEDS: GUAIFENESIN LA 600 MG TABLET.SA PO SCH ×2 (11:44→21:10)
[2023-11-25] MEDS: AMIODARONE HCL 200 MG TABLET PO SCH ×2 (11:44→21:09)
[2023-11-25] MEDS: DOCUSATE SODIUM 100 MG CAPSULE PO SCH ×2 (11:44→17:28)
[2023-11-25] MEDS: PROTEIN SUPPLEMENT (PROSTAT) 30 ML LIQUID PO SCH ×2 (11:45→17:31)
[2023-11-25] MEDS: NEPRO (VANILLA) 237 ML CAN PO SCH (11:45)
[2023-11-25] MEDS: EMPAGLIFLOZIN 25 MG TABLET PO SCH (11:47)
[2023-11-25] MEDS: INSULIN REGULAR, HUMAN 300 UNIT/3 ML VIAL SQ PRN ×3 (11:47→21:23)
[2023-11-25 15:43] LABS: *BILIRUBIN,URIN NEGATIVE (NEGATIVE); *BLOOD, URINE 3+ (NEGATIVE); *CLARITY,URINE CLEAR (CLEAR); *COLOR,URINE YELLOW (YELLOW); *KETONES,URINE 1+ (NEGATIVE); *PROTEIN,URINE 2+ (NEGATIVE); *UROBILINOGEN,URINE 0.2 E.U./dl (NORMAL); LEUKOCYTE ESTERASE ,URINE NEGATIVE (NEGATIVE); NITRITE, URINE NEGATIVE (NEGATIVE); PH,URINE 5.5 (5.0-8.0)
[2023-11-25 15:44] LABS: UGLUCOSE 3+ (NEGATIVE)
[2023-11-25 15:57] LABS: BACTERIA,URINE MODERATE /HPF (NONE SEEN); RBC,URINE 80-100 /HPF (0-3); WBC,URINE 0-3 /HPF (0-3); YEAST,URINE BUDDING YEAST /HPF (NONE SEEN)
[2023-11-25 16:00] VITALS: BP 115/52; TEMP 98.4; O2SAT 96
[2023-11-25 20:29] VITALS: BP 98/49; TEMP 97.7; O2SAT 95
[2023-11-25] MEDS: QUETIAPINE FUMARATE 25 MG TABLET PO SCH (21:09)
[2023-11-25] MEDS: MIRTAZAPINE 15 MG TABLET PO SCH (21:10)
[2023-11-25] MEDS: TAMSULOSIN HCL 0.4 MG CAP.SR.24H PO SCH (21:13)
[2023-11-25] MEDS: ENOXAPARIN SODIUM 60 MG/0.6 ML DISP.SYRIN SQ SCH (21:23)
[2023-11-26 05:51] VITALS: BP 93/57; TEMP 98.8; O2SAT 93
[2023-11-26] MEDS: PANTOPRAZOLE SODIUM 40 MG TABLET.DR PO SCH (06:20)
[2023-11-26] MEDS: BLOOD SUGAR DIAGNOSTIC 1 EACH STRIP VI SCH ×4 (06:27→21:16)
[2023-11-26 07:35] LABS: BASOPHILS % (AUTO) 0.1 % (0.0-2.0); HEMOGLOBIN 9.8 g/dL (12.5-16.3); LYMPHOCYTES # (AUTO) 0.5 K/uL (0.8-4.8); LYMPHOCYTES % (AUTO) 3.4 % (20.5-51.5); MEAN CORPUSCULAR HGB CONC 31 g/dL (32.5-36.3); MEAN CORPUSCULAR VOLUME 81.4 fL (73.0-96.2); MONOCYTES # (AUTO) 0.8 K/uL (0.1-1.30); MONOCYTES % (AUTO) 4.9 % (0.0-11.0); NEUTROPHILS # (AUTO) 14.3 K/uL (1.8-8.9); NEUTROPHILS % (AUTO) 91.6 % (38.5-71.5); PLATELET COUNT (AUTO) 493 K/uL (152-348); RED BLOOD CELL COUNT(AUTO) 3.94 MIL/uL (4.06-5.63); RED CELL DISTRIBUTION WIDTH 17.5 % (12.1-16.2); WHITE BLOOD COUNT (AUTO) 15.6 K/uL (3.6-10.2)
[2023-11-26 08:03] LABS: DIFFERENTIAL COMMENT 1
[2023-11-26 08:09] LABS: ALANINE AMINOTRANSFERASE 16 U/L (16-63); ALBUMIN 2.3 g/dL (3.4-5.0); ALKALINE PHOSPHATASE 92 U/L (50-136); ASPARTATE AMINOTRANSFERASE 12 U/L (15-37); BILIRUBIN,TOTAL 0.5 mg/dL (0.2-1.0); CALCIUM 8.9 mg/dL (8.5-10.1); CARBON DIOXIDE 29 mmol/L (21-32); CHLORIDE 116 mmol/L (98-107); GLUCOSE 257 mg/dL (74-106); MAGNESIUM 2.4 mg/dL (1.8-2.4); PHOSPHOROUS 3.9 mg/dL (2.5-4.9); POTASSIUM 3.5 mmol/L (3.5-5.1); SODIUM SERUM 154 mmol/L (136-145); TOTAL PROTEIN, SERUM 6.9 g/dL (6.4-8.2); UREA NITROGEN, BLOOD 28 mg/dL (7-18)
[2023-11-26] MEDS: LOSARTAN POTASSIUM 25 MG TABLET PO SCH (09:00)
[2023-11-26] MEDS: AMIODARONE HCL 200 MG TABLET PO SCH ×2 (09:00→20:46)
[2023-11-26] MEDS: METOPROLOL TARTRATE 25 MG TABLET PO SCH ×2 (09:00→20:41)
[2023-11-26] MEDS: ASPIRIN 81 MG TAB.CHEW PO SCH (09:38)
[2023-11-26] MEDS: GUAIFENESIN LA 600 MG TABLET.SA PO SCH ×2 (09:39→20:46)
[2023-11-26] MEDS: OLANZAPINE ZYDIS 5 MG TAB.RAPDIS PO SCH ×2 (09:39→17:16)
[2023-11-26] MEDS: DOCUSATE SODIUM 100 MG CAPSULE PO SCH ×2 (09:41→17:15)
[2023-11-26] MEDS: EMPAGLIFLOZIN 25 MG TABLET PO SCH (09:44)
[2023-11-26] MEDS: ENOXAPARIN SODIUM 60 MG/0.6 ML DISP.SYRIN SQ SCH ×2 (09:47→20:47)
[2023-11-26] MEDS: NEPRO (VANILLA) 237 ML CAN PO SCH (09:48)
[2023-11-26] MEDS: PROTEIN SUPPLEMENT (PROSTAT) 30 ML LIQUID PO SCH ×2 (09:48→17:16)
[2023-11-26] MEDS: INSULIN REGULAR, HUMAN 300 UNIT/3 ML VIAL SQ PRN ×4 (09:51→21:19)
[2023-11-26] MEDS ORDERED: MEDIHONEY= THERAHONEY 1.5 OZ TUBE TOP SCH (12:00)
[2023-11-26 16:09] VITALS: BP 92/51; TEMP 97.9; O2SAT 96
[2023-11-26] MEDS ORDERED: CLOTRIMAZOLE 1% CREAM 30 GM TUBE TOP SCH (17:00)
[2023-11-26] MEDS: TAMSULOSIN HCL 0.4 MG CAP.SR.24H PO SCH (20:41)
[2023-11-26] MEDS: MIRTAZAPINE 15 MG TABLET PO SCH (20:41)
[2023-11-26] MEDS: QUETIAPINE FUMARATE 25 MG TABLET PO SCH (20:41)
[2023-11-26 20:50] VITALS: BP 91/53; TEMP 98.2; O2SAT 98
[2023-11-27] MEDS ORDERED: EPINEPHRINE 1:10,000 1 MG/10 ML DISP.SYRIN ONE (02:00)
[2023-11-27] MEDS ORDERED: CALCIUM CHLORIDE 1 GM/10 ML DISP.SYRIN IVP ONE (02:00)
[2023-11-27] MEDS ORDERED: DEXTROSE 50% 50 ML DISP.SYRIN ONE (02:00)
== END 2023-11-27 03:30 | DRG 871 ==
LOC: ER 19:01 → TELE3 11-15 03:24 → TELE-TD3 11-15 04:17 → CCU 11-15 16:19 → TELE3 11-22 05:10 → MEDSURG3 11-24 10:15
PROVIDERS: ADMIT Nurse Practitioner Acute Care; ATTEND Internal Medicine
PROC: 02HV33Z Insertion of Infusion Device into Superior Vena Cava, Percutaneous Approach (ICD-10-PCS; principal; 2023-11-17)
PROC: 05HY33Z Insertion of Infusion Device into Upper Vein, Percutaneous Approach (ICD-10-PCS; 2023-11-22)
PROC: 5A12012 Performance of Cardiac Output, Single, Manual (ICD-10-PCS; 2023-11-27)
PROC: 0BH17EZ Insertion of Endotracheal Airway into Trachea, Via Natural or Artificial Opening (ICD-10-PCS; 2023-11-27)
DX: A41.9 Sepsis, unspecified organism (principal); G92.8 Other toxic encephalopathy; J96.01 Acute respiratory failure with hypoxia; J15.69 Pneumonia due to other Gram-negative bacteria; R65.21 Severe sepsis with septic shock; I50.23 Acute on chronic systolic (congestive) heart failure; E44.0 Moderate protein-calorie malnutrition; Z68.1 Body mass index [BMI] 19.9 or less, adult; T82.898A Other specified complication of vascular prosthetic devices, implants and grafts, initial encounter; J44.0 Chronic obstructive pulmonary disease with (acute) lower respiratory infection; J84.9 Interstitial pulmonary disease, unspecified; N40.0 Benign prostatic hyperplasia without lower urinary tract symptoms; R62.7 Adult failure to thrive; D50.9 Iron deficiency anemia, unspecified; Z87.891 Personal history of nicotine dependence; E87.6 Hypokalemia; I48.0 Paroxysmal atrial fibrillation; Z79.82 Long term (current) use of aspirin; Z79.899 Other long term (current) drug therapy; S30.0XXA Contusion of lower back and pelvis, initial encounter; X58.XXXA Exposure to other specified factors, initial encounter; Y92.230 Patient room in hospital as the place of occurrence of the external cause; I70.0 Atherosclerosis of aorta; E11.51 Type 2 diabetes mellitus with diabetic peripheral angiopathy without gangrene; F03.90 Unspecified dementia, unspecified severity, without behavioral disturbance, psychotic disturbance, mood disturbance, and anxiety; F29 Unspecified psychosis not due to a substance or known physiological condition; I05.2 Rheumatic mitral stenosis with insufficiency; Y83.2 Surgical operation with anastomosis, bypass or graft as the cause of abnormal reaction of the patient, or of later complication, without mention of misadventure at the time of the procedure; E11.649 Type 2 diabetes mellitus with hypoglycemia without coma; I44.7 Left bundle-branch block, unspecified; Z79.84 Long term (current) use of oral hypoglycemic drugs
CPT/HCPCS: 36415; 36569; 70450; 71045; 82533; 83550; 83605; 83735; 84100; 84443; 84484; 85025; 87040; 92950; 93005; 93307; A4606; A4663; A6209; A6213; C1758; C9113; G0378; J0171; J0282; J0692; J1630; J1650; J1815; J2060; J2358; J3480; J3490; J7040; J7042; J7050